=== PATIENT | female | born 1975 | race Caucasian/White ===

== ENCOUNTER 2018-06-07 01:16 | Inpatient (IN) | payer MEDICAID, OTHER ==
[~2018-06-07] VITALS: Ht 167.6 cm; Wt 50.5 kg
[~2018-06-07 01:16] MED LIST: ALBU6.7H INH; AZIT250T PO; GABA600T13 PO; HYDR-4353 PO; INHA1SPA3 MC; PROM25TA14 PO; PROP40TA72 PO; VENL50TA4 PO
[2018-06-07 01:53] LABS: BASOPHILS % (AUTO) 0.5 % (0-1); EOSINOPHILS # (AUTO) 0.1 X10'3 (0-0.9); EOSINOPHILS % (AUTO) 1.8 % (0-6); HEMATOCRIT 41.1 % (35.0-45.0); HEMOGLOBIN 13.8 g/dl (12.0-16.0); LYMPHOCYTES # (AUTO) 1.6 X10'3 (1.1-4.8); LYMPHOCYTES % (AUTO) 20.1 % (21-51); MEAN CORPUSCULAR HEMOGLOBIN 27.5 PG (27.0-31.0); MEAN CORPUSCULAR HGB CONC 33.6 g/dL (33.0-36.5); MEAN CORPUSCULAR VOLUME 81.7 FL (78-98); MEAN PLATELET VOLUME 7.2 FL (7.4-10.4); MONOCYTES # (AUTO) 0.5 X10'3 (0-0.9); NEUTROPHILS # (AUTO) 5.7 X10'3 (1.8-7.7); NEUTROPHILS % (AUTO) 71.6 % (42-75); PLATELET COUNT 342 X10'3 (140-440); RED BLOOD COUNT 5.04 X10'6 (4.20-5.60); RED CELL DISTRIBUTION WIDTH 15.2 % (11.5-14.5); WHITE BLOOD COUNT 7.9 X10'3 (4.5-11.0)
[2018-06-07 02:00] LABS: ALBUMIN 4.1 G/DL (3.4-5.0); ANION GAP 15 (8-16); BILIRUBIN,TOTAL 0.4 MG/DL (0.1-1.0); BLOOD UREA NITROGEN 18 MG/DL (7-18); CALCIUM 9.8 MG/DL (8.5-10.1); CHLORIDE 103 MMOL/L (99-107); CREATININE 0.82 MG/DL (0.40-0.90); GLUCOSE 137 MG/DL (70-104); POTASSIUM 3.7 MMOL/L (3.5-5.1); SODIUM 141 MMOL/L (135-145); TOTAL CARBON DIOXIDE 23.1 MMOL/L (24-32); TOTAL PROTEIN 7.8 G/DL (6.4-8.2); eGFR 76 ML/MIN
[2018-06-07 02:01] LABS: ALANINE AMINOTRANSFERASE 23 U/L (12-78); ALBUMIN/GLOBULIN RATIO 1.1 (1.1-1.5); ALKALINE PHOSPHATASE 109 IU/L (46-116); ASPARTATE AMINO TRANSFERASE 22 U/L (10-37)
--- NOTE | 2018-06-07 02:01 | NUR ---
UPON ASSESSMENT PT IS COMPLAINING OF 10/10 PAIN, BUT IS FALLING ASLEEP DURING EXAM. PT IS EASILY AROUSED AND VSS
[2018-06-07] MEDS ORDERED: ondansetron/PF 4mg/2ml inj IV ONE (02:15)
[2018-06-07] MEDS ORDERED: normal saline 1000ML IV soln IVB ONE (02:15)
[2018-06-07] MEDS ORDERED: ketorolac trometh. 30mg/ml inj. IV ONE (02:15)
[2018-06-07 02:31] LABS: LIPASE 90 U/L (73-393)
[2018-06-07] MEDS ORDERED: normal saline 1000ml 1,000 ML IV ONE (02:45)
--- NOTE | 2018-06-07 03:05 | NUR ---
PT STILL REFUSING TO URINATE
--- NOTE | 2018-06-07 03:23 | NUR ---
BRAULIO ADELANTO [phone]
[2018-06-07] MEDS ORDERED: morphine 4 MG/ML inj SYRINge IV ONE (04:05)
[2018-06-07 04:42] LABS: URINE HCG NEGATIVE (NEG)
[2018-06-07 04:51] LABS: URINE AMPHETAMINE SCREEN POSITIVE (Neg); URINE BARBITUATE SCREEN NEGATIVE (Neg); URINE BENZODIAZEPINES SCREEN NEGATIVE (Neg); URINE CANNABINOID SCREEN NEGATIVE (Neg); URINE COCAINE SCREEN NEGATIVE (Neg); URINE METHADONE SCREEN NEGATIVE (Neg); URINE OPIATE SCREEN NEGATIVE (Neg); URINE PHENCYCLIDINE SCREEN NEGATIVE (Neg)
[2018-06-07 04:59] LABS: CLARITY,URINE CLOUDY (Clear); COLOR,URINE YELLOW (Yellow); GLUCOSE, URINE NEGATIVE (Neg); KETONES,URINE TRACE mg/dl (Neg); LEUKOCYTE ESTERASE ,URINE SMALL (Neg); NITRITES, URINE POSITIVE (Neg); OCCULT BLOOD,URINE NEGATIVE (Neg); PH,URINE 7.5 (4.8-8.0); PROTEIN,URINE NEGATIVE (Neg)
[2018-06-07 05:09] LABS: UA COLLECTION TYPE CLN CATCH MIDSTREAM
[2018-06-07 05:13] LABS: BACTERIA,URINE 2+ /HPF (Neg)
[2018-06-07 05:14] LABS: SQUAMOUS EPITHELIAL CELL,UR FEW /LPF (FEW)
[2018-06-07 05:18] LABS: MUCUS STRANDS MODERATE /LPF (Neg)
[2018-06-07 05:20] LABS: RBC,URINE 0-2 /HPF (0-2)
[2018-06-07 05:23] LABS: AMORPHOUS PHOSPHATES 2+
[2018-06-07] MEDS: diatr meglu/diatrizoate 30ml oral sol.-(3 dose) bottle PO SCH ×4 (05:46→07:05)
[2018-06-07] MEDS ORDERED: acetaminophen 325mg tablet PO PRN (05:50)
[2018-06-07] MEDS ORDERED: mag hydrox/Alum hydrox/simeth 30ml oral suspension PO PRN (05:50)
[2018-06-07] MEDS ORDERED: magnesium hydroxide 30ml (MOM) UD suspension PO PRN (05:50)
[2018-06-07] MEDS ORDERED: morphine 2 MG/ML inj. syringe IV PRN ×2 (05:50)
[2018-06-07] MEDS ORDERED: ondansetron/PF 4mg/2ml inj IV PRN (05:50)
[2018-06-07] MEDS ORDERED: LORazepam 2 mg/ml vial IV ONE (05:55)
[2018-06-07] MEDS: normal saline 1000ml 1,000 ML IV SCH ×3 (05:57→20:21)
[2018-06-07] MEDS ORDERED: morphine 4 MG/ML inj SYRINge IV PRN (05:58)
[2018-06-07] MEDS: levoFLOXACIN-Levaquin 500mg/D5 100 ML IV SCH (06:03)
--- NOTE | 2018-06-07 07:32 | NUR ---
MD ORDERED 6 HR PREP INSTEAD OF QUICK PREP
[2018-06-07] MEDS: enoxaparin 40mg/0.4ml syringe SUBCUT SCH (08:00)
--- NOTE | 2018-06-07 09:00 | NUR ---
PT ARRIVED TO FLOOR, PT FALLS ASLEEP WHEN I TRY TO TALK TO HER. WILL ASSESS AND MONITOR. WAS TOLD BY ER NURSE SELENA THAT PATIENT IS COMING OFF OF METH
--- NOTE | 2018-06-07 09:45 | NUR ---
PT HAS VOMITED ON FLOOR, CHUNKY LIGHT BROWN VOMIT.
--- NOTE | 2018-06-07 10:00 | NUR ---
PT WAKES UP AT TIMES, SAYS SHE IS UNCOMFORTABLE IN BED, MOVED POSITIONS AND FELL ASLEEP.
[2018-06-07 10:30] VITALS: BP 155/87
--- NOTE | 2018-06-07 11:11 | NUR ---
WAS SITTING UP IN BED, NOW BACK TO SLEEP
[2018-06-07] MEDS ORDERED: diatr meglu/diatrizoate 30ml oral sol.-(3 dose) bottle PO ONE (11:30)
[2018-06-07] MEDS ORDERED: iohexol 300mg/ml 100ml inj. ONE (11:57)
[2018-06-07 12:00] VITALS: BP 155/87
--- NOTE | 2018-06-07 12:04 | NUR ---
Pt going for CT scan. She is drowsy but was able to answer basic questions for CT screening form and then would fall back asleep. Dr Moulton aware of drowsiness.
--- NOTE | 2018-06-07 14:03 | NUR ---
PT WOKE UP SOME TO TALK TO DR CASTANO. SHE IS STILL SOMEWHAT DROWSY BUT WAS ABLE TO TALK ABOUT POSSIBILITY OF SURGERY. DR CASTANO SAYS CT SHOWS NO CHANGE IN SBO BUT WILL REEVALUATE SURGICAL NEED IN 24 HR. PT GAVE PERMISSION TO TALK TO DAUGHTERS ABOUT DIAGNOSIS. RAY HAS BEEN UPDATED ABOUT SBO AND POSSIBILITY FOR SURGERY.
--- NOTE | 2018-06-07 14:10 | NUR ---
Daughter Mia when spoken to earlier wanted to relay that patient had hemorrhage during bowel surgery many years ago and wanted that passed on to surgeon incase of surgery. I did relay that to Dr Simeon while he was in room talking to patient.
[2018-06-07] MEDS ORDERED: PROM25TA14 PO (14:18)
[2018-06-07] MEDS ORDERED: ALBU8.5H8 IH (16:07)
--- NOTE | 2018-06-07 17:57 | NUR ---
DAUGHTERS PHONE NUMBERS [phone] MARIANNA [phone]
--- NOTE | 2018-06-07 17:59 | NUR ---
PATIENT MORE ALERT THAN EARILIER TODAY, STILL SLEEPING A LOT AND FALLS ASLEEP WHEN TALKING AT TIMES THOUGH
--- NOTE | 2018-06-07 18:07 | NUR ---
Problems reprioritized. Patient report given, questions answered & plan of care reviewed with GRISELDA BREWER.
--- NOTE | 2018-06-07 18:10 | NUR ---
Patient in room TAL 354. I have received report from Ghislaine BREWER and had the opportunity to ask questions and assume patient care.
[2018-06-07 19:00] VITALS: BP 167/89
[2018-06-07] MEDS: lactobacillus rhamnosus 10,000 MMU CELLS/CAPSULE PO SCH (20:00)
[2018-06-07] MEDS: morphine 4 MG/ML inj SYRINge IV PRN (20:19)
[2018-06-07] MEDS ORDERED: temazepam 15mg capsule PO PRN (21:00)
[2018-06-08] VITALS: BP 155/93
[2018-06-08] MEDS: morphine 4 MG/ML inj SYRINge IV PRN ×5 (00:07→18:11)
[2018-06-08] MEDS: normal saline 1000ml 1,000 ML IV SCH ×2 (04:56→19:56)
[2018-06-08 06:04] LABS: BASOPHILS % (AUTO) 0.4 % (0-1); EOSINOPHILS # (AUTO) 0.1 X10'3 (0-0.9); EOSINOPHILS % (AUTO) 0.9 % (0-6); HEMATOCRIT 40.6 % (35.0-45.0); HEMOGLOBIN 13.6 g/dl (12.0-16.0); LYMPHOCYTES # (AUTO) 1.3 X10'3 (1.1-4.8); LYMPHOCYTES % (AUTO) 13.9 % (21-51); MEAN CORPUSCULAR HEMOGLOBIN 27.4 PG (27.0-31.0); MEAN CORPUSCULAR HGB CONC 33.4 g/dL (33.0-36.5); MEAN CORPUSCULAR VOLUME 81.8 FL (78-98); MEAN PLATELET VOLUME 7.6 FL (7.4-10.4); MONOCYTES # (AUTO) 0.8 X10'3 (0-0.9); MONOCYTES % (AUTO) 8.2 % (2-12); NEUTROPHILS # (AUTO) 7.4 X10'3 (1.8-7.7); NEUTROPHILS % (AUTO) 76.6 % (42-75); PLATELET COUNT 320 X10'3 (140-440); RED BLOOD COUNT 4.96 X10'6 (4.20-5.60); RED CELL DISTRIBUTION WIDTH 15.4 % (11.5-14.5); WHITE BLOOD COUNT 9.7 X10'3 (4.5-11.0)
[2018-06-08 06:19] LABS: ALBUMIN 3.2 G/DL (3.4-5.0); ANION GAP 12 (8-16); BLOOD UREA NITROGEN 13 MG/DL (7-18); BUN/CREATININE RATIO 20.6 (6.6-38.0); CALCIUM 8.8 MG/DL (8.5-10.1); CHLORIDE 103 MMOL/L (99-107); CREATININE 0.63 MG/DL (0.40-0.90); GLUCOSE 97 MG/DL (70-104); POTASSIUM 3.4 MMOL/L (3.5-5.1); SODIUM 139 MMOL/L (135-145); eGFR > 90 ML/MIN
[2018-06-08] MEDS: lactobacillus rhamnosus 10,000 MMU CELLS/CAPSULE PO SCH ×2 (06:41→19:55)
--- NOTE | 2018-06-08 06:51 | NUR ---
Patient in room TAL 354. I have received report from Mari weaver and had the opportunity to ask questions and assume patient care.
[2018-06-08 07:00] VITALS: BP 135/89
[2018-06-08] MEDS: enoxaparin 40mg/0.4ml syringe SUBCUT SCH (08:17)
[2018-06-08] MEDS: levoFLOXACIN-Levaquin 500mg/D5 100 ML IV SCH (08:17)
[2018-06-08] MEDS ORDERED: FLU VACC QUAD 2018(5 YR UP)/PF 60 MCG/0.5 ML SYRINGE IM ONE (09:45)
[2018-06-08 11:00] VITALS: BP 129/87
[2018-06-08] MEDS ORDERED: potassium Cl 40MEQ/NS 500ml 500 ML IV PRN ×2 (12:25)
[2018-06-08] MEDS ORDERED: potassium Cl 20 mEq SR tablet PO PRN ×2 (12:25)
[2018-06-08] MEDS: nicotine 14mg patch - 24hr TD SCH (12:43)
--- NOTE | 2018-06-08 18:20 | NUR ---
Patient in room TAL 354. I have received report from Mari BREWER and had the opportunity to ask questions and assume patient care.
--- NOTE | 2018-06-08 18:35 | NUR ---
Pt. in room with visitors- daughters at bedside. They are very concern about her NPO status- education in full has been provided to them about why the pt. is NPO many times. She is comfortable- just received pain medication, NG to suction per order, IV running fluids per order. No complaints or needs from pt. at this time. Gave report to America BREWER.
[2018-06-08 19:00] VITALS: BP 112/66
--- NOTE | 2018-06-08 20:00 | NUR ---
Nasogastric tube advanced further to correct positioning and placement confirmed, (patient stated that she felt like it had been tugged on while in bed) . Patient tolerated well. Secured to gown using safety pin and patient educated on trying to be careful with NG tube and PIV. Addendum: 06/09/18 at 0224 by America Armando RN At this time dark green gastric bile seen to be suctioning to cannister.
[2018-06-09] VITALS: BP 110/72
[2018-06-09 05:11] LABS: BASOPHILS % (AUTO) 0.5 % (0-1); EOSINOPHILS # (AUTO) 0.1 X10'3 (0-0.9); EOSINOPHILS % (AUTO) 1.3 % (0-6); HEMATOCRIT 34.9 % (35.0-45.0); HEMOGLOBIN 12.1 g/dl (12.0-16.0); LYMPHOCYTES % (AUTO) 16.8 % (21-51); MEAN CORPUSCULAR HEMOGLOBIN 28.2 PG (27.0-31.0); MEAN CORPUSCULAR HGB CONC 34.5 g/dL (33.0-36.5); MEAN CORPUSCULAR VOLUME 81.8 FL (78-98); MEAN PLATELET VOLUME 7.1 FL (7.4-10.4); MONOCYTES # (AUTO) 0.4 X10'3 (0-0.9); MONOCYTES % (AUTO) 6.5 % (2-12); NEUTROPHILS # (AUTO) 4.7 X10'3 (1.8-7.7); NEUTROPHILS % (AUTO) 74.9 % (42-75); PLATELET COUNT 236 X10'3 (140-440); RED BLOOD COUNT 4.27 X10'6 (4.20-5.60); RED CELL DISTRIBUTION WIDTH 14.9 % (11.5-14.5); WHITE BLOOD COUNT 6.2 X10'3 (4.5-11.0)
[2018-06-09 05:32] LABS: ALBUMIN 2.9 G/DL (3.4-5.0); ANION GAP 10 (8-16); BLOOD UREA NITROGEN 16 MG/DL (7-18); BUN/CREATININE RATIO 24.6 (6.6-38.0); CALCIUM 8.6 MG/DL (8.5-10.1); CHLORIDE 104 MMOL/L (99-107); CREATININE 0.65 MG/DL (0.40-0.90); GLUCOSE 65 MG/DL (70-104); POTASSIUM 3.9 MMOL/L (3.5-5.1); SODIUM 139 MMOL/L (135-145); eGFR > 90 ML/MIN
[2018-06-09] MEDS: normal saline 1000ml 1,000 ML IV SCH ×2 (06:30→16:27)
--- NOTE | 2018-06-09 06:31 | NUR ---
Problems reprioritized. Patient report given, questions answered & plan of care reviewed with Mahi weaver.
[2018-06-09] MEDS: levoFLOXACIN-Levaquin 500mg/D5 100 ML IV SCH (07:01)
[2018-06-09] MEDS: morphine 4 MG/ML inj SYRINge IV PRN ×2 (07:01→11:16)
[2018-06-09] MEDS: enoxaparin 40mg/0.4ml syringe SUBCUT SCH (07:02)
[2018-06-09] MEDS: nicotine 14mg patch - 24hr TD SCH (07:02)
[2018-06-09 07:25] VITALS: BP 123/76
[2018-06-09] MEDS: lactobacillus rhamnosus 10,000 MMU CELLS/CAPSULE PO SCH ×2 (08:00→21:01)
[2018-06-09] MEDS ORDERED: morphine 4 MG/ML inj SYRINge IV PRN (11:30)
--- NOTE | 2018-06-09 12:00 | NUR ---
Made MD aware of open lesions on labia, vaginal harley and shanelle anal area. No new orders at this time.
[2018-06-09 12:03] VITALS: BP 123/76
[2018-06-09] MEDS ORDERED: albuterol 2.5 MG/3 ML nebule NEB PRN (13:40)
[2018-06-09] MEDS ORDERED: morphine 2 MG/ML inj. syringe IV ONE (13:50)
[2018-06-09] MEDS: morphine 2 MG/ML inj. syringe IV PRN (18:23)
--- NOTE | 2018-06-09 18:30 | NUR ---
Pain medication given to relieve pain. Pt. comfortable in bed in a stable condition with no needs at this time. Gave report to America BREWER.
--- NOTE | 2018-06-09 18:51 | NUR ---
Patient in room TAL 354. I have received report from Mari BREWER and had the opportunity to ask questions and assume patient care.
[2018-06-09 19:00] VITALS: BP 113/67
[2018-06-09] MEDS: propranolol 40mg tablet PO SCH (21:01)
[2018-06-09] MEDS: gabapentin 300mg capsule PO SCH (21:01)
[2018-06-10] VITALS: BP 123/78
[2018-06-10] MEDS: normal saline 1000ml 1,000 ML IV SCH ×2 (02:06→13:37)
[2018-06-10] MEDS: morphine 2 MG/ML inj. syringe IV PRN ×5 (04:46→22:21)
[2018-06-10 05:53] LABS: EOSINOPHILS # (AUTO) 0.2 X10'3 (0-0.9); EOSINOPHILS % (AUTO) 3.5 % (0-6); HEMATOCRIT 34.4 % (35.0-45.0); HEMOGLOBIN 11.6 g/dl (12.0-16.0); LYMPHOCYTES # (AUTO) 1.3 X10'3 (1.1-4.8); LYMPHOCYTES % (AUTO) 28.2 % (21-51); MEAN CORPUSCULAR HEMOGLOBIN 27.7 PG (27.0-31.0); MEAN CORPUSCULAR HGB CONC 33.8 g/dL (33.0-36.5); MEAN PLATELET VOLUME 7.3 FL (7.4-10.4); MONOCYTES # (AUTO) 0.5 X10'3 (0-0.9); MONOCYTES % (AUTO) 10.4 % (2-12); NEUTROPHILS # (AUTO) 2.7 X10'3 (1.8-7.7); NEUTROPHILS % (AUTO) 56.9 % (42-75); PLATELET COUNT 234 X10'3 (140-440); RED CELL DISTRIBUTION WIDTH 15.2 % (11.5-14.5); WHITE BLOOD COUNT 4.8 X10'3 (4.5-11.0)
[2018-06-10 06:04] LABS: ALBUMIN 2.8 G/DL (3.4-5.0); ANION GAP 5 (8-16); BLOOD UREA NITROGEN 7 MG/DL (7-18); BUN/CREATININE RATIO 11.3 (6.6-38.0); CALCIUM 8.8 MG/DL (8.5-10.1); CHLORIDE 107 MMOL/L (99-107); CREATININE 0.62 MG/DL (0.40-0.90); GLUCOSE 102 MG/DL (70-104); POTASSIUM 4.1 MMOL/L (3.5-5.1); SODIUM 141 MMOL/L (135-145); TOTAL CARBON DIOXIDE 29.1 MMOL/L (24-32); eGFR > 90 ML/MIN
--- NOTE | 2018-06-10 06:30 | NUR ---
Problems reprioritized. Patient report given, questions answered & plan of care reviewed with Lynda BREWER.
--- NOTE | 2018-06-10 06:50 | NUR ---
Patient in room TAL 354. I have received report from America BREWER and had the opportunity to ask questions and assume patient care.
[2018-06-10 07:00] VITALS: BP 104/66
[2018-06-10] MEDS: levoFLOXACIN-Levaquin 500mg/D5 100 ML IV SCH (08:33)
[2018-06-10] MEDS: lactobacillus rhamnosus 10,000 MMU CELLS/CAPSULE PO SCH ×2 (08:33→21:05)
[2018-06-10] MEDS: gabapentin 300mg capsule PO SCH ×3 (08:34→21:06)
[2018-06-10] MEDS: venlafaxine 25mg tablet PO SCH (08:34)
[2018-06-10] MEDS: propranolol 40mg tablet PO SCH ×2 (08:34→21:05)
[2018-06-10] MEDS: nicotine 14mg patch - 24hr TD SCH (08:34)
[2018-06-10] MEDS: enoxaparin 40mg/0.4ml syringe SUBCUT SCH (08:35)
[2018-06-10] MEDS: potassium Cl 20mEq in NS 1,000 ML IV SCH (17:31)
--- NOTE | 2018-06-10 18:57 | NUR ---
Ambulating in unit diet advanced to full lqd per dr olguin. For CT with contrast in am. Report given to Catarina Amaro RN
--- NOTE | 2018-06-10 19:04 | NUR ---
Patient in room TAL 354. I have received report from OSMAN Howell and had the opportunity to ask questions and assume patient care. Addendum: 06/10/18 at 1904 by Keri Lee RN Amended: Links added.
[2018-06-10 20:00] VITALS: BP 111/64
[2018-06-10] MEDS: diatr meglu/diatrizoate 30ml oral sol.-(3 dose) bottle PO SCH (21:06)
[2018-06-11] VITALS: BP 102/59
[2018-06-11] MEDS: morphine 2 MG/ML inj. syringe IV PRN ×3 (03:51→13:44)
[2018-06-11 05:42] LABS: ALBUMIN 2.8 G/DL (3.4-5.0); ANION GAP 5 (8-16); BLOOD UREA NITROGEN 4 MG/DL (7-18); BUN/CREATININE RATIO 5.6 (6.6-38.0); CALCIUM 8.7 MG/DL (8.5-10.1); CHLORIDE 107 MMOL/L (99-107); CREATININE 0.71 MG/DL (0.40-0.90); GLUCOSE 94 MG/DL (70-104); POTASSIUM 4.2 MMOL/L (3.5-5.1); SODIUM 144 MMOL/L (135-145); TOTAL CARBON DIOXIDE 32.2 MMOL/L (24-32); eGFR 89 ML/MIN
[2018-06-11] MEDS: potassium Cl 20mEq in NS 1,000 ML IV SCH ×2 (05:47→18:23)
--- NOTE | 2018-06-11 05:54 | NUR ---
pt was ambulatory and did 4 laps at this shift, on NPO for CT scan today, aware, still has pain and getting morphine. no acute changes Addendum: 06/11/18 at 0555 by Keri Lee RN Amended: Links added.
--- NOTE | 2018-06-11 06:41 | NUR ---
Problems reprioritized. Patient report given, questions answered & plan of care reviewed with OSMAN Hinkle. Addendum: 06/11/18 at 0641 by Keri Lee RN Amended: Links added.
[2018-06-11 07:00] VITALS: BP 107/67
[2018-06-11] MEDS: diatr meglu/diatrizoate 30ml oral sol.-(3 dose) bottle PO SCH ×2 (07:19→21:00)
[2018-06-11] MEDS: gabapentin 300mg capsule PO SCH ×3 (07:47→22:47)
[2018-06-11] MEDS: lactobacillus rhamnosus 10,000 MMU CELLS/CAPSULE PO SCH ×2 (07:47→20:09)
[2018-06-11] MEDS: levoFLOXACIN-Levaquin 500mg/D5 100 ML IV SCH (07:47)
[2018-06-11] MEDS: propranolol 40mg tablet PO SCH ×2 (07:47→20:10)
[2018-06-11] MEDS: venlafaxine 25mg tablet PO SCH (07:47)
[2018-06-11] MEDS: nicotine 14mg patch - 24hr TD SCH (07:47)
[2018-06-11] MEDS: enoxaparin 40mg/0.4ml syringe SUBCUT SCH (07:47)
[2018-06-11] MEDS ORDERED: HYDROcodone/acetaminophen 10/325mg tab PO PRN (12:50)
--- NOTE | 2018-06-11 14:31 | NUR ---
Initial: Pt admit with SBO. S/p CT with findings of resolving small bowel ileus/obstruction with decreased small bowel prominence and the small bowel now appears to be relatively normal however there's a considerable stool in the colon noted per MD notes. Pt passing gas however LBM 06/06, routine Colace has just been ordered. Pt previously on full liquid diet with documented 100% PO intake, diet has just been advanced to regular, pending PO intake. Will continue to follow and make recommendations as appropriate. Recommendations: 1) Continue with regular diet 2) Monitor need for ONS 3) Monitor need for additional bowel care 4) Wt per rx Addendum: 06/11/18 at [address] Amended: Links added.
[2018-06-11] MEDS: docusate sod 100mg capsule PO SCH ×2 (14:37→20:09)
[2018-06-11 17:51] VITALS: BP 105/58
--- NOTE | 2018-06-11 18:22 | NUR ---
Problems reprioritized. Patient report given, questions answered & plan of care reviewed with douglas jeffery rn.
--- NOTE | 2018-06-11 18:35 | NUR ---
Patient in room TAL 354. I have received report from OSMAN Hinkle and had the opportunity to ask questions and assume patient care. Addendum: 06/11/18 at 1835 by Keri Lee RN Amended: Links added.
[2018-06-11 19:00] VITALS: BP 125/63
[2018-06-11] MEDS: HYDROcodone/acetaminophen 5mg/325mg tablet PO PRN (20:10)
[2018-06-12] VITALS: BP 97/65
[2018-06-12] MEDS: HYDROcodone/acetaminophen 5mg/325mg tablet PO PRN ×4 (02:34→19:37)
[2018-06-12 05:52] LABS: ALBUMIN 2.7 G/DL (3.4-5.0); ANION GAP 3 (8-16); BLOOD UREA NITROGEN 12 MG/DL (7-18); BUN/CREATININE RATIO 14.3 (6.6-38.0); CALCIUM 8.7 MG/DL (8.5-10.1); CHLORIDE 107 MMOL/L (99-107); CREATININE 0.84 MG/DL (0.40-0.90); GLUCOSE 94 MG/DL (70-104); POTASSIUM 4.4 MMOL/L (3.5-5.1); SODIUM 144 MMOL/L (135-145); TOTAL CARBON DIOXIDE 34.3 MMOL/L (24-32); eGFR 74 ML/MIN
[2018-06-12] MEDS: potassium Cl 20mEq in NS 1,000 ML IV SCH ×2 (06:02→22:44)
[2018-06-12 07:00] VITALS: BP 94/53
[2018-06-12] MEDS: gabapentin 300mg capsule PO SCH ×3 (07:05→20:58)
[2018-06-12] MEDS: docusate sod 100mg capsule PO SCH ×2 (07:05→19:37)
[2018-06-12] MEDS: levoFLOXACIN-Levaquin 500mg/D5 100 ML IV SCH (07:05)
[2018-06-12] MEDS: nicotine 14mg patch - 24hr TD SCH (07:06)
[2018-06-12] MEDS: venlafaxine 25mg tablet PO SCH (07:06)
[2018-06-12] MEDS: propranolol 40mg tablet PO SCH ×2 (07:06→19:37)
[2018-06-12] MEDS: lactobacillus rhamnosus 10,000 MMU CELLS/CAPSULE PO SCH ×2 (07:06→19:37)
[2018-06-12] MEDS: enoxaparin 40mg/0.4ml syringe SUBCUT SCH (07:07)
[2018-06-12 12:53] VITALS: BP 111/73
--- NOTE | 2018-06-12 18:17 | NUR ---
Problems reprioritized. Patient report given, questions answered & plan of care reviewed with douglas jeffery rn.
--- NOTE | 2018-06-12 18:20 | NUR ---
Patient in room TAL 354. I have received report from OSMAN Hinkle and had the opportunity to ask questions and assume patient care. Addendum: 06/12/18 at 1820 by Keri Lee RN Amended: Links added.
[2018-06-12 20:00] VITALS: BP 98/56
[2018-06-12] MEDS: diatr meglu/diatrizoate 30ml oral sol.-(3 dose) bottle PO SCH (20:58)
[2018-06-13 00:49] VITALS: BP 94/57
--- NOTE | 2018-06-13 06:33 | NUR ---
Problems reprioritized. Patient report given, questions answered & plan of care reviewed with OSMAN Jorge. Addendum: 06/13/18 at 0633 by Keri Lee RN Amended: Links added.
[2018-06-13 07:10] VITALS: BP 92/54
[2018-06-13] MEDS: propranolol 40mg tablet PO SCH ×2 (07:27→15:01)
[2018-06-13] MEDS: gabapentin 300mg capsule PO SCH ×2 (07:28→13:59)
[2018-06-13] MEDS: docusate sod 100mg capsule PO SCH (07:28)
[2018-06-13] MEDS: lactobacillus rhamnosus 10,000 MMU CELLS/CAPSULE PO SCH (07:28)
[2018-06-13] MEDS: HYDROcodone/acetaminophen 5mg/325mg tablet PO PRN ×2 (07:29→14:00)
[2018-06-13] MEDS: nicotine 14mg patch - 24hr TD SCH (07:30)
[2018-06-13] MEDS: diatr meglu/diatrizoate 30ml oral sol.-(3 dose) bottle PO SCH ×2 (07:31→10:00)
[2018-06-13] MEDS: levoFLOXACIN-Levaquin 500mg/D5 100 ML IV SCH (07:32)
[2018-06-13] MEDS: venlafaxine 25mg tablet PO SCH (07:35)
[2018-06-13] MEDS: enoxaparin 40mg/0.4ml syringe SUBCUT SCH (07:37)
[2018-06-13] MEDS ORDERED: ondansetron/PF 4mg/2ml inj IV PRN (09:15)
[2018-06-13 11:00] VITALS: BP 99/47
[2018-06-13] MEDS: potassium Cl 20mEq in NS 1,000 ML IV SCH (14:15)
[2018-06-13] MEDS ORDERED: COL100C PO (14:37)
[2018-06-13] MEDS ORDERED: GABA600T13 PO ×2 (14:37→14:45)
--- NOTE | 2018-06-13 15:55 | NUR ---
PATIENT DISCHARGED HOME WITH DAUGHTER. IV TAKEN OUT, NO TELE, ALL BELONGINGS TAKEN FROM ROOM. 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 PATIENT WILL F/U WITH DR CASTANO FOR POSSIBLE HERNIA SURGERY. PT IN STABLE CONDITION UPON DISCHARGE.
== END 2018-06-13 15:53 | disposition home or self-care (01) | DRG 463 ==
LOC: ER 01:17 → SUR 3N 07:48
PROVIDERS: ADMIT Hospitalist; ATTEND Internal Medicine
PROC: BW211ZZ Computerized Tomography (CT Scan) of Abdomen and Pelvis using Low Osmolar Contrast (ICD-10-PCS; 2018-06-07)
PROC: 0D9670Z Drainage of Stomach with Drainage Device, Via Natural or Artificial Opening (ICD-10-PCS; 2018-06-07)
PROC: 3E02340 Introduction of Influenza Vaccine into Muscle, Percutaneous Approach (ICD-10-PCS; principal; 2018-06-08)
DX: N39.0 Urinary tract infection, site not specified (principal); K56.600 Partial intestinal obstruction, unspecified as to cause; B95.7 Other staphylococcus as the cause of diseases classified elsewhere; K43.9 Ventral hernia without obstruction or gangrene; K56.7 Ileus, unspecified; F15.10 Other stimulant abuse, uncomplicated; F17.210 Nicotine dependence, cigarettes, uncomplicated; Z76.5 Malingerer [conscious simulation]; Z90.49 Acquired absence of other specified parts of digestive tract; Z90.710 Acquired absence of both cervix and uterus; Z98.84 Bariatric surgery status; Z85.038 Personal history of other malignant neoplasm of large intestine; Z85.6 Personal history of leukemia; Z87.440 Personal history of urinary (tract) infections; Z71.51 Drug abuse counseling and surveillance of drug abuser; Z23 Encounter for immunization
CPT/HCPCS: 36415; 74176; 74177; 80048; 80053; 80305; 81001; 81025; 83690; 85025; 85610; 87070; 87077; 87088; 87186; 96365; 96375; 99285; G0378; J1650; J1885; J1956; J2060; J2270; J2405; J3480; J7030; Q2037; Q9963; Q9967

== ENCOUNTER 2023-07-25 09:45 | Emergency (ER) | payer MEDICAID, OTHER ==
[~2023-07-25] VITALS: Ht 165.1 cm; Wt 63.6 kg
[~2023-07-25 09:45] MED LIST changes: -ALBU6.7H INH; +ALBU8.5H17 IH; -AZIT250T PO; +COL100C PO
[2023-07-25 10:22] LABS: BASOPHILS % (AUTO) 0.5 % (0-1); EOSINOPHILS # (AUTO) 0.1 X10'3 (0-0.9); EOSINOPHILS % (AUTO) 1.5 % (0-6); HEMATOCRIT 42.9 % (35.0-45.0); HEMOGLOBIN 14.6 g/dl (12.0-16.0); LYMPHOCYTES # (AUTO) 1.2 X10'3 (1.1-4.8); LYMPHOCYTES % (AUTO) 21.4 % (21-51); MEAN CORPUSCULAR HEMOGLOBIN 30.7 PG (27.0-31.0); MEAN CORPUSCULAR HGB CONC 34.1 g/dL (33.0-36.5); MEAN CORPUSCULAR VOLUME 90.2 FL (78-98); MEAN PLATELET VOLUME 7.2 FL (7.4-10.4); MONOCYTES # (AUTO) 0.3 X10'3 (0-0.9); MONOCYTES % (AUTO) 5.7 % (2-12); NEUTROPHILS # (AUTO) 3.9 X10'3 (1.8-7.7); NEUTROPHILS % (AUTO) 70.9 % (42-75); PLATELET COUNT 249 X10'3 (140-440); RED BLOOD COUNT 4.76 X10'6 (4.20-5.60); RED CELL DISTRIBUTION WIDTH 13.3 % (11.5-14.5); WHITE BLOOD COUNT 5.5 X10'3 (4.5-11.0)
[2023-07-25 10:43] LABS: ALBUMIN 4.4 G/DL (3.4-5.0); ANION GAP 8 (8-16); BLOOD UREA NITROGEN 8 MG/DL (7-18); BUN/CREATININE RATIO 11.6 (10.0-20.0); CALCIUM 9.3 MG/DL (8.5-10.1); CHLORIDE 102 MMOL/L (99-107); CREATININE 0.69 MG/DL (0.40-0.90); GLUCOSE 113 MG/DL (70-104); POTASSIUM 3.8 MMOL/L (3.5-5.1); PRO BRAIN NATRIURETIC PEPTIDE 189 PG/ML (0-125); SODIUM 138 MMOL/L (135-145); TOTAL CARBON DIOXIDE 28.4 MMOL/L (24-32); eCRCL 89 ML/MIN; eGFR 90 ML/MIN
[2023-07-25] MEDS ORDERED: NAPR-56 PO (12:14)
[2023-07-25] MEDS ORDERED: CYCL-1 PO (12:14)
[2023-07-25] MEDS ORDERED: TRAM50TA2 PO (12:14)
[2023-07-25] MEDS: HYDROcodone/acetaminophen 10/325mg tab PO ONE (12:46)
[2023-07-25] MEDS: orphenadrine citrate 60mg/2ml inj. IM ONE (12:46)
[2023-07-25 12:54] VITALS: BP 143/93; PULSE 85; RESP 16; TEMP 98.6; O2SAT 99
== END 2023-07-25 12:57 | disposition home or self-care (01) ==
LOC: ER 09:47
DX: S20.212A Contusion of left front wall of thorax, initial encounter (principal); Z79.899 Other long term (current) drug therapy; Z90.49 Acquired absence of other specified parts of digestive tract; Z90.710 Acquired absence of both cervix and uterus; W19.XXXA Unspecified fall, initial encounter; Y93.89 Activity, other specified; Y92.89 Other specified places as the place of occurrence of the external cause; Y99.8 Other external cause status
CPT/HCPCS: 36415; 71045; 80048; 83880; 84484; 85025; 93005; 96372; 99285; J2360